=== PATIENT | female | born 2000 | race Two or more races ===

== ENCOUNTER 2022-06-27 17:19 | Inpatient (IN) | payer MEDICAID ==
[~2022-06-27] VITALS: Ht 162.6 cm; Wt 92.1 kg
[2022-06-27] MEDS ORDERED: PHISODERM TOP SOLN 240ML BTL TOP PRN (18:00)
[2022-06-27] MEDS ORDERED: BUTORPHANOL TARTRATE 2 MG/1 ML VIAL IV PRN ×2 (18:00)
[2022-06-27] MEDS ORDERED: PROMETHAZINE HCL 25 MG/ML 1ML IV PRN (18:00)
[2022-06-27] MEDS ORDERED: LACT. RINGERS/OXYTOCIN 20UNITS 500 ML IV ONE ×2 (18:00→18:30)
[2022-06-27] MEDS ORDERED: LIDOCAINE 2%HCL (LOCAL ANESTH.) INJ 20ML MDV IJ PRN (18:00)
[2022-06-27] MEDS ORDERED: WITCH HAZEL-GLYCERIN PAD TOP PRN (18:00)
[2022-06-27] MEDS ORDERED: DERMOPLAST 60ML BOTTLE TOP PRN (18:00)
[2022-06-27] MEDS ORDERED: LACT. RINGERS/OXYTOCIN 20UNITS 1,000 ML IV SCH (18:30)
[2022-06-27] MEDS: LACTATED RINGER'S 1,000 ML IV SCH ×2 (18:47→23:05)
[2022-06-27 19:06] LABS: Urine Bacteria FEW /hpf (None Seen); Urine Blood TRACE /uL (Negative); Urine Specific Gravity 1.018 (1.001-1.035); Urine WBC 7 /hpf (0 - 5)
[2022-06-27 19:18] LABS: Basophils # (auto) 0.1 10 ^3/uL (0-0.2); Basophils % (auto) 0.9 % (0.0-2.0); Eosinophils # (auto) 0 10 ^3/uL (0-0.8); Eosinophils % (auto) 0.4 % (0.0-7.0); Hematocrit 34.6 % (36.0-46.0); Hemoglobin 11.5 g/dL (12.2-16.2); Lymphocytes # (auto) 1.7 10 ^3/uL (0.4-5.4); Lymphocytes % (auto) 14.8 % (10.0-50.0); Mean Corpuscular Hemoglobin 27.1 pg (28.0-32.0); Mean Corpuscular Hgb Conc. 33.2 g/dL (32.0-36.0); Mean Corpuscular Volume 81.6 fL (80.0-100.0); Monocytes # (auto) 0.9 10 ^3/uL (0-1.3); Monocytes % (auto) 7.5 % (0.0-12.0); Neutrophils # (auto) 8.9 10 ^3/uL (1.6-8.6); Neutrophils % (auto) 76.4 % (37.0-80.0); Nucleated Red Blood Cells % 0.1 %; Red Blood Cells 4.24 10^6/uL (4.0-5.20); Red Cell Distribution Width 14.4 % (11.8-14.3); White Blood Cell 11.7 10^3/uL (4.4-10.8)
[2022-06-27 19:20] LABS: INR 0.92 (0.9-1.15); Partial Thromboplastin Time 26.2 sec (24.6-33.4)
[2022-06-27 19:22] LABS: Albumin 2.8 g/dL (3.4-5.0); Calcium 8.7 mg/dL (8.5-10.1); Potassium 3.7 mmol/L (3.5-5.1)
[2022-06-27 19:22] LABS: Alcohol, Urine < 3.0 mg/dL (0-10); Amphetamine Screen, Urine NEGATIVE (NEGATIVE); Barbiturate Scree,Urine NEGATIVE (NEGATIVE); Benzodiazephine Screen, Urine NEGATIVE (NEGATIVE); Cannabinoid Screen, Urine NEGATIVE (NEGATIVE); Cocaine Screen, Urine NEGATIVE (NEGATIVE); Opiate Scree,Urine NEGATIVE (NEGATIVE); Phencyclidine Screen, Urine NEGATIVE (NEGATIVE)
[2022-06-27 19:35] LABS: BUN/Creatinine Ratio 20.7; Bilirubin, Total 0.3 mg/dL (0.2-1.0)
[2022-06-27] MEDS ORDERED: METHYLERGONOVINE MALEATE 0.2 MG/ML AMP IM ONE (19:45)
[2022-06-27] MEDS ORDERED: ACETAMINOPHEN 325 MG TAB PO ONE (19:53)
[2022-06-27] MEDS ORDERED: miSOPROStol 100 mcg TAB ONE (19:54)
[2022-06-27] MEDS ORDERED: DIPHENOXYLATE W/ATROPINE 2.5 MG TAB ONE (20:06)
[2022-06-27] MEDS ORDERED: CARBOPROST TROMETHAMINE 250 MCG/1ML VIAL IM ONE ×2 (20:07→20:19)
[2022-06-27] MEDS ORDERED: ONDANSETRON HCL 4 MG/2 ML VIAL ONE (20:07)
[2022-06-27] MEDS ORDERED: ceFAZolin 2 GM in D5W 5% 100 ML IV ONE (21:00)
[2022-06-27] MEDS ORDERED: IBUPROFEN 600 MG TAB PO PRN (23:00)
[2022-06-27] MEDS ORDERED: ONDANSETRON ODT 4 MG TAB PO PRN (23:00)
[2022-06-28 03:00] VITALS: BP 110/60
[2022-06-28 06:45] VITALS: BP 121/71
[2022-06-28] MEDS: ceFAZolin 1GM/50ML 50 ML IV SCH ×2 (10:15→17:48)
[2022-06-28 10:30] VITALS: BP 112/67
[2022-06-28] MEDS: LACTATED RINGER'S 1,000 ML IV SCH (11:33)
[2022-06-28] MEDS: ACETAMINOPHEN 325 MG TAB PO PRN ×2 (11:36→17:48)
[2022-06-28 15:10] VITALS: BP 111/60
[2022-06-28 19:00] VITALS: BP 116/74
[2022-06-28] MEDS ORDERED: DOCUSATE SOD 100 MG CAP PO SCH (22:00)
[2022-06-28 23:00] VITALS: BP 112/77
[2022-06-29] MEDS: ceFAZolin 1GM/50ML 50 ML IV SCH (02:04)
[2022-06-29 03:00] VITALS: BP 122/69
[2022-06-29 07:00] VITALS: BP 120/54
[2022-06-29] MEDS: ACETAMINOPHEN 325 MG TAB PO PRN (07:45)
[2022-06-29] MEDS ORDERED: ceFAZolin 1GM/50ML 50 ML IV SCH (10:00)
[2022-06-29 11:30] VITALS: BP 126/77
[2022-06-30 05:06] LABS: RPR Non Reactive (Non Reactive)
== END 2022-06-29 14:45 | disposition home or self-care (01) | DRG 560 ==
LOC: LDRP 17:19 → OBSVTOIN 17:45 → LDRP 18:47
PROVIDERS: ADMIT Obstetrics & Gynecology; ATTEND Obstetrics & Gynecology
PROC: 10E0XZZ Delivery of Products of Conception, External Approach (ICD-10-PCS; principal; 2022-06-27)
PROC: 0KQM0ZZ Repair Perineum Muscle, Open Approach (ICD-10-PCS; 2022-06-27)
DX: O70.1 Second degree perineal laceration during delivery (principal); Z37.0 Single live birth; Z20.822 Contact with and (suspected) exposure to COVID-19; Z81.8 Family history of other mental and behavioral disorders; Z3A.39 39 weeks gestation of pregnancy
CPT/HCPCS: 36415; 59025; 59409; 74018; 80053; 80307; 81001; 81002; 85025; 85610; 85730; 86592; 86850; 86900; 86901; 87426; 94760; 96360; 96361; 96365; 96366; 96372; 96374; G0378; J0690; J2405; J2590; J7060